=== PATIENT | male | born 1945 | race Caucasian/White ===

== ENCOUNTER 2021-02-23 15:25 | Emergency (ER) | payer OTHER ==
[~2021-02-23] VITALS: Ht 167.6 cm; Wt 74.8 kg
[2021-02-23] MEDS ORDERED: METFORMIN HCL850 MG (15:54)
[2021-02-23] MEDS ORDERED: ZESTRIL40 M1 (15:55)
[2021-02-23] MEDS ORDERED: PROCARDIA XL90 MG (15:56)
[2021-02-23] MEDS ORDERED: CORGARD80 M1 (15:56)
[2021-02-23] MEDS ORDERED: ADULT LOW DOSE81 M1 (15:56)
== END 2021-02-23 17:10 | disposition home or self-care (01) ==
LOC: ER 15:25
DX: L03.012 Cellulitis of left finger (principal)

== ENCOUNTER 2021-03-05 10:04 | Outpatient (CLI) | payer OTHER ==
[~2021-03-05 10:04] MED LIST: ADULT LOW DOSE81 M1; CORGARD80 M1; METFORMIN HCL850 MG; PROCARDIA XL90 MG; ZESTRIL40 M1
== END 2021-03-05 11:00 | disposition home or self-care (01) ==
LOC: WOUND MED 10:04
PROVIDERS: ATTEND Specialist
DX: E11.622 Type 2 diabetes mellitus with other skin ulcer (principal); L98.492 Non-pressure chronic ulcer of skin of other sites with fat layer exposed; R60.0 Localized edema
CPT/HCPCS: G0463; A4554; A4930; A6216

== ENCOUNTER 2023-06-24 11:09 | Emergency (ER) | payer OTHER ==
[~2023-06-24] VITALS: Ht 167.6 cm; Wt 69.4 kg
[2023-06-24] MEDS ORDERED: TOPROL XL50 M1 PO (12:17)
[2023-06-24] MEDS ORDERED: [UNRECOGNIZED DRUG - OTHER] IJ (12:18)
[2023-06-24] MEDS ORDERED: JARDIANCE10 MG PO (12:18)
[2023-06-24] MEDS ORDERED: TAMS0.4C PO (12:18)
[2023-06-24 15:03] LABS: HEMATOCRIT 47.4 % (39.0-48.0); HEMOGLOBIN 15.7 g/dL (13-16.00); MEAN CELL VOLUME 75.5 fL (80.0-100.00); MEAN CORPUSCULAR HGB CONC 33.1 g/dl (32.0-36.0); PLATELET COUNT 274 K/uL (150-450); RED BLOOD COUNT 6.28 M/uL (4.00-6.00); RED CELL DISTRIBUTION WIDTH 14.8 % (11.5-14.5)
[2023-06-24 15:24] LABS: PH,URINE 5.5 (5.0-8.0); URINE APPEARANCE Clear; URINE BILIRRUBIN Negative (NEGATIVE); URINE BLOOD Negative; URINE COLOR Yellow; URINE LEUKOCYTE Negative; URINE NITRATE Negative; URINE PROTEIN Trace (NEGATIVE); URINE UROBILINOGEN 0.2 E.U./dl
[2023-06-24 15:24] LABS: ALBUMIN 3.8 gm/dL (3.4-5.0); BILIRUBIN TOTAL 0.38 mg/dL (0.3-1.2); CALCIUM 9.3 mg/dL (8.5-10.1); CREATININE SERUM 0.82 mg/dL (0.70-1.30); GFR 91.35; GLOBULINA 4.4 G/DL (2.4-3.5); POTASSIUM 3.9 mEq/L (3.5-5.1); TOTAL PROTEIN 8.2 gm/dL (6.4-8.2)
[2023-06-24 15:30] LABS: URINE BACTERIA 6.2 uL (0.0-1933); URINE RBC 6.4 uL (0.0-20.8)
[2023-06-24 15:32] LABS: URINE EPITHELIAL CELLS 1.2 uL (0.0-38.8); URINE GLUCOSE >=1000 MG/DL (NEGATIVE); URINE WBC 1.5 uL (0.0-23.2)
== END 2023-06-24 17:36 | disposition left against medical advice (07) ==
LOC: ER 11:10
PROVIDERS: Emergency Medicine
DX: R10.9 Unspecified abdominal pain (principal); K80.20 Calculus of gallbladder without cholecystitis without obstruction; E11.9 Type 2 diabetes mellitus without complications; I10 Essential (primary) hypertension; N20.0 Calculus of kidney; N40.0 Benign prostatic hyperplasia without lower urinary tract symptoms